=== PATIENT | female | born 1990 | race Caucasian/White ===

== ENCOUNTER 2021-10-21 10:36 | Emergency (ER) | payer MEDICAID ==
[~2021-10-21] VITALS: Ht 170.2 cm; Wt 62.7 kg
[2021-10-21 10:43] VITALS: BP 128/63
--- NOTE | 2021-10-21 10:58 | NUR ---
PT AMBULATE TO ROOM 7. PT IN GOWN
--- NOTE | 2021-10-21 11:03 | NUR ---
31YR OLD FEMALE BIB SELF C/O POSS BUG/INSECT BITE X1WEEK. L HIP AND TIP OF NOSE SLIGHTLY RED NO SWELLING NOTED. DENIES PAIN AND FEVER. DENIES N/V. PT IN GOWN HOB ELEVATED. SIDE RAIL UP X1. NKDA ASTHMA
--- NOTE | 2021-10-21 11:15 | NUR ---
31/F PRESENTS TO ED WITH C/O BUG TO HIP AND NOSE, RDNES NOTED, NO SWELLING OR DRAINAGE. PATIENT DENIES FEVERS, CHILLS.
[2021-10-21 11:50] VITALS: BP 128/63
--- NOTE | 2021-10-21 11:50 | NUR ---
Patient discharged with v/s stable. Written and verbal after care instructions given and explained. Patient verbalized understanding. Ambulatory with steady gait. All questions addressed prior to discharge. Advised to follow up with PMD.
--- NOTE | 2021-10-21 12:00 | NUR ---
The patient's care was reviewed and supervised by Carrie Lopez RN.
== END 2021-10-21 11:50 | disposition home or self-care (01) ==
LOC: MED 10:36
DX: L70.0 Acne vulgaris (principal)
CPT/HCPCS: 99281